=== PATIENT | male | born 1945 | race Caucasian/White ===

== ENCOUNTER 2018-12-21 07:49 | Inpatient (IN) | payer MEDICARE ==
[~2018-12-21] VITALS: Ht 195.6 cm; Wt 107.4 kg
[~2018-12-21 07:49] MED LIST: ASPI-496 PO; CALC-126 PO; CHOL200074 PO; FISH1CAP PO; GLIM4TAB2 PO; LUTE20TA PO; MAGN400T7 PO; SOTA80TA PO; TRANEXAMIC ACID 100 MG/ML, 10ML ONE; VITA1CAP PO
[2018-12-21] MEDS ORDERED: MEPERIDINE/PF 25MG/0.5ML IVPush PRN (08:30)
[2018-12-21] MEDS ORDERED: hydrALAzine 20 MG/ML, 1ML IV PRN (08:30)
[2018-12-21] MEDS ORDERED: LABETALOL 5MG/ML, 20ML IV PRN (08:30)
[2018-12-21] MEDS ORDERED: METOPROLOL 1 MG/ML, 5ML IV PRN (08:30)
[2018-12-21] MEDS ORDERED: DIPHENHYDRAMINE 50 MG/ML, 1ML IVPush PRN (08:30)
[2018-12-21] MEDS ORDERED: OXYcodone 5 MG/5 ML ORAL.SOL UDC PO PRN (08:30)
[2018-12-21] MEDS ORDERED: HALOPERIDOL 5 MG/ML IV PRN (08:30)
[2018-12-21] MEDS ORDERED: PROCHLORPERAZINE 5 MG/ML, 2ML IV PRN (08:30)
[2018-12-21] MEDS ORDERED: PROMETHAZINE 25 MG/ML, 1ML IV PRN (08:30)
[2018-12-21] MEDS ORDERED: HYDROmorphone 2 MG/ML, 1ML IVPush PRN (08:30)
[2018-12-21] MEDS ORDERED: ALBUTEROL SULFATE 2.5 MG/3 ML NPPB PRN (08:30)
[2018-12-21] MEDS ORDERED: LACTATED RINGERS 1,000 ML IV SCH (08:35)
[2018-12-21 08:38] VITALS: BP 148/91
[2018-12-21] MEDS ORDERED: ACETAMINOPHEN 500 MG TABLET PO ONE (09:00)
[2018-12-21] MEDS ORDERED: GABAPENTIN 300 MG CAPSULE PO ONE (09:00)
[2018-12-21] MEDS ORDERED: FENTANYL PF 250 MCG/5ML ONE (09:16)
[2018-12-21] MEDS ORDERED: CEFAZOLIN 1,000 MG ONE (09:54)
[2018-12-21] MEDS ORDERED: ONDANSETRON 2MG/ML, 2ML ONE (09:54)
[2018-12-21] MEDS ORDERED: DEXAMETHASONE 4 MG/ML, 1ML ONE (09:54)
[2018-12-21] MEDS ORDERED: GLYCOPYRROLATE 0.2MG/1ML, 5ML ONE (09:54)
[2018-12-21] MEDS ORDERED: SUCCINYLCHOLINE 20 MG/ML, 10ML ONE (09:54)
[2018-12-21] MEDS ORDERED: ROCURONIUM 10 MG/ML,10ML ONE (09:54)
[2018-12-21] MEDS ORDERED: NEOSTIGMINE 1 MG/ML, 10ML ONE (09:54)
[2018-12-21] MEDS ORDERED: PROPOFOL 10 MG/ML, 20ML ONE (09:54)
[2018-12-21] MEDS ORDERED: PHENYLEPHRINE 10 MG/ML ONE (09:54)
[2018-12-21] MEDS: SODIUM CHLORIDE 0.9% 1,000 ML IV SCH ×2 (09:56→20:00)
[2018-12-21] MEDS ORDERED: ZOLPIDEM 5MG TABLET PO PRN (10:00)
[2018-12-21] MEDS ORDERED: MAGNESIUM HYDROXIDE 8%, 30ML UDC PO PRN (10:00)
[2018-12-21] MEDS ORDERED: DIPHENHYDRAMINE 50 MG CAPSULE PO PRN (10:00)
[2018-12-21] MEDS ORDERED: PROMETHAZINE 25 MG/ML, 1ML IM PRN (10:00)
[2018-12-21] MEDS ORDERED: HYDROmorphone 1 MG/ML, 1ML IV PRN (10:00)
[2018-12-21] MEDS ORDERED: BISACODYL 10 MG SUPP PR PRN (10:00)
[2018-12-21] MEDS ORDERED: HYDROcodone/APAP 5/325 TABLET PO PRN (10:00)
[2018-12-21] MEDS ORDERED: LORazepam 1MG TABLET PO PRN (10:00)
[2018-12-21] MEDS ORDERED: SENNA/DOCUSATE TABLET PO PRN (10:00)
[2018-12-21] MEDS ORDERED: ACETAMINOPHEN 325 MG TABLET PO PRN (10:00)
[2018-12-21] MEDS ORDERED: ONDANSETRON 2MG/ML, 2ML IV PRN (10:00)
[2018-12-21] MEDS ORDERED: PROMETHAZINE 12.5 MG SUPP PR PRN (10:00)
[2018-12-21] MEDS ORDERED: ONDANSETRON 4 MG TABLET PO PRN (10:00)
[2018-12-21] MEDS ORDERED: ALUMINUM/MAG/SIMETHICONE 30 ML UDC PO PRN (10:00)
[2018-12-21] MEDS ORDERED: FENTANYL PF 100 MCG/2ML ONE ×2 (11:46→11:56)
[2018-12-21] MEDS ORDERED: OXYcodone 5 MG/5 ML ORAL.SOL UDC ONE (11:47)
[2018-12-21] MEDS: FENTANYL PF 100 MCG/2ML IV PRN ×3 (11:51→12:14)
[2018-12-21] MEDS ORDERED: HYDROmorphone 2 MG/ML, 1ML ONE (11:55)
[2018-12-21] MEDS ORDERED: DIAZEPAM 5 MG TABLET ONE (11:56)
[2018-12-21] MEDS: DIAZEPAM 5 MG TABLET PO PRN ×2 (12:02→23:08)
[2018-12-21] MEDS ORDERED: TRANEXAMIC ACID 1,000 MG in SODIUM CHLORIDE 0.9% 100 ML IVPB ONE (12:30)
[2018-12-21 13:05] VITALS: BP 128/72
[2018-12-21] MEDS: CEFAZOLIN PMX 2GM/50ML 50 ML IVPB SCH (17:21)
[2018-12-21] MEDS: DOCUSATE 100 MG CAPSULE PO SCH (20:00)
[2018-12-21] MEDS: SOTALOL 80MG TABLET PO SCH (20:00)
[2018-12-21 20:10] VITALS: BP 136/97
[2018-12-21] MEDS: OXYcodone IR 5MG TABLET PO PRN (21:59)
[2018-12-21 23:17] VITALS: BP 104/69
[2018-12-22] MEDS: CEFAZOLIN PMX 2GM/50ML 50 ML IVPB SCH (01:38)
[2018-12-22] MEDS: OXYcodone IR 5MG TABLET PO PRN ×4 (01:47→20:37)
[2018-12-22 04:59] VITALS: BP 127/79
[2018-12-22] MEDS: SODIUM CHLORIDE 0.9% 1,000 ML IV SCH ×2 (05:28→15:56)
[2018-12-22] MEDS: DIAZEPAM 5 MG TABLET PO PRN (05:28)
[2018-12-22] MEDS ORDERED: DEXAMETHASONE 4 MG/ML, 1ML IVPush SCH (06:00)
[2018-12-22] MEDS ORDERED: OXYC5TAB3 PO (06:28)
[2018-12-22] MEDS ORDERED: SENN1TAB8 PO (06:28)
[2018-12-22] MEDS ORDERED: RIVA10TA2 PO (06:28)
[2018-12-22] MEDS: RIVAROXABAN 10 MG TABLET PO SCH (07:49)
[2018-12-22] MEDS: SOTALOL 80MG TABLET PO SCH ×2 (07:49→20:37)
[2018-12-22] MEDS: DOCUSATE 100 MG CAPSULE PO SCH ×2 (07:49→20:38)
[2018-12-22] MEDS: MULTIVITAMINS/MINERALS TABLET PO SCH (07:49)
[2018-12-22 07:54] VITALS: BP 109/68
[2018-12-22] MEDS: KETOROLAC 30 MG/1 ML IV SCH ×2 (11:06→18:01)
[2018-12-22 12:29] VITALS: BP 98/67
[2018-12-22 19:51] VITALS: BP 112/66
[2018-12-22 20:35] VITALS: BP 105/68
[2018-12-23] MEDS: SODIUM CHLORIDE 0.9% 1,000 ML IV SCH (01:56)
[2018-12-23 02:04] VITALS: BP 102/67
[2018-12-23] MEDS: KETOROLAC 30 MG/1 ML IV SCH (03:11)
[2018-12-23] MEDS: OXYcodone IR 5MG TABLET PO PRN ×3 (04:24→12:19)
[2018-12-23 07:34] VITALS: BP 100/66
[2018-12-23] MEDS: SOTALOL 80MG TABLET PO SCH (08:14)
[2018-12-23] MEDS: DOCUSATE 100 MG CAPSULE PO SCH (08:14)
[2018-12-23] MEDS: MULTIVITAMINS/MINERALS TABLET PO SCH (08:15)
[2018-12-23] MEDS: RIVAROXABAN 10 MG TABLET PO SCH (08:15)
[2018-12-23] MEDS ORDERED: GLIMEPIRIDE 4 MG TABLET PO SCH (09:00)
== END 2018-12-23 12:09 | disposition home health service (06) | DRG 470 ==
LOC: ORIP 07:49 → 4NOR 13:02 → DCLOUNGE 12-23 11:48
PROVIDERS: ADMIT Orthopaedic Surgery Adult Reconstructive Orthopaedic Surgery; ATTEND Orthopaedic Surgery Adult Reconstructive Orthopaedic Surgery
PROC: 0QP604Z Removal of Internal Fixation Device from Right Upper Femur, Open Approach (ICD-10-PCS; 2018-12-21)
PROC: 0SR901A Replacement of Right Hip Joint with Metal Synthetic Substitute, Uncemented, Open Approach (ICD-10-PCS; principal; 2018-12-21 09:30)
DX: M16.51 Unilateral post-traumatic osteoarthritis, right hip (principal); S72.001K Fracture of unspecified part of neck of right femur, subsequent encounter for closed fracture with nonunion; R71.0 Precipitous drop in hematocrit; E11.9 Type 2 diabetes mellitus without complications; I10 Essential (primary) hypertension; I48.91 Unspecified atrial fibrillation; X58.XXXD Exposure to other specified factors, subsequent encounter; Z88.8 Allergy status to other drugs, medicaments and biological substances
CPT/HCPCS: 36415; 82962; 85014; 85018; 86850; 86900; C1713; G0378; J0690; J1100; J1170; J1885; J2405; J2704; J2710; J3010; J3490; C1776; J0330; J2370; J7030; J7120